=== PATIENT | female | born 1975 | race Caucasian/White ===

== ENCOUNTER 2017-06-06 15:08 | Emergency (ER) | payer OTHER ==
[2017-06-06 15:39] LABS: Basophils # (Auto) 0.1 K/mm3 (0.0-0.1); Basophils % (Auto) 0.6 % (0.0-1.8); Eosinophils # (Auto) 1.8 K/mm3 (0.0-0.4); Hematocrit 45.1 % (30.3-42.9); Hemoglobin 15.3 gm/dl (10.1-14.3); Lymphocytes # (Auto) 3.5 K/mm3 (1.2-5.4); Lymphocytes % (Auto) 25.8 % (13.4-35.0); Mean Corpuscular HGB Conc 34 % (30-34); Mean Corpuscular Hemoglobin 30 pg (28-32); Mean Corpuscular Volume 89 fl (79-97); Monocytes # (Auto) 0.6 K/mm3 (0.0-0.8); Monocytes % (Auto) 4.7 % (0.0-7.3); Platelet Count 254 K/mm3 (140-440); Red Blood Count 5.05 M/mm3 (3.65-5.03); Red Cell Distribution Width 13.7 % (13.2-15.2)
[2017-06-06 15:58] LABS: Alanine Aminotransferase 26 units/L (7-56); BUN/Creatinine Ratio 13; Blood Urea Nitrogen 9 mg/dL (7-17); Calcium 9.1 mg/dL (8.4-10.2); Hemolysis Index 9
[2017-06-06 17:02] LABS: Bacteria,Urine 1+ /HPF (Negative); Bilirubin,Urine NEG (Negative); Blood,Urine NEG (Negative); Color,Urine Yellow (Yellow); Mucus,Urine FEW /HPF; Nitrite,Urine NEG (Negative); Protein,Urine <15 mg/dL mg/dL (Negative)
--- NOTE | 2017-06-06 19:10 | Emergency Department Report ---
Chief Complaint: Abdominal Pain Stated Complaint: ABDOMINAL PAIN - HPI History of Present Illness: 41-year-old female past medical history GERD, H pylori presents with complaint of lower abdominal pain. Patient states she started triple therapy for GERD this week through her primary care doctor. Also states and claims that she seen small worms in her stool. States she has slight diarrhea. Last menstrual period 05/12 - ROS Review of Systems: 2 days of lower abdominal pain - Exam Vital Signs: Vital Signs 06/06/17 15:16 Temperature 98.4 F Pulse Rate 67 Respiratory 16 Rate Blood Pressure 121/75 O2 Sat by Pulse 98 Oximetry Physical Exam: Positive suprapubic pain MSE screening note: Focused history and physical exam performed. Due to findings the following was ordered: Screening Assessment/Plan/Differential Dx: Abdominal pain, 1- This initial assessment/diagnostic orders/clinical plan/ treatment(s) is/are subject to change based on pt's health status, clinical progression and re- assessment by fellow clinical providers in the ED. Further treatment and workup at subsequent clinical provers discretion. Patient/guardians urged not to elope from ED as their condition may be serious if not clinically assessed and managed. 2-ultrasound, type and screen, urinalysis 3-I provided patient with sample cup for stool ED Medical Decision Making - Lab Data Result diagrams: 06/06/17 15:25 06/06/17 15:25 ED Disposition for MSE Condition: Stable Instructions: Abdominal Pain (ED) Referrals: PRIMARY CARE, [Primary Care Provider] - 3-5 Days
--- NOTE | 2017-06-06 20:43 | Ultrasound Report ---
FINAL REPORT PROCEDURE: US OB < = 14 WEEKS FETUS TECHNIQUE: Real-time transabdominal sonography of the uterus, placenta, amniotic fluid, adnexa, and fetus was performed with image documentation. Measurements were obtained to determine age/size. M-mode Doppler was used to document heartbeat. CPT 52496 HISTORY: abdominal pain COMPARISON: No prior studies are available for comparison. FINDINGS: The uterus measures 9.2 x 5.6 x 6 centimeters. There are 2 nonspecific fluid collections in the endometrial cavity measuring 9.4 x 2.7 x 16.3 millimeters and 2 x 3.9 x 4.1 millimeters. There is no normal appearing intrauterine gestational sac. There is no pole, yolk sac or cardiac activity. Followup beta HCG measurements suggested. Right ovary measures 2.9 x 2.3 x 2.8 centimeters. Left ovary measures 2.4 x 2 x 1.6 centimeters. There are 3 cystic follicles measuring up to 7 millimeters in diameter. There is minimal nonspecific fluid in the pelvic cul-de-sac. IMPRESSION: There are 2 nonspecific fluid collections in the endometrial cavity measuring 9.4 x 2.7 x 16.3 millimeters and 2 x 3.9 x 4.1 millimeters. There is no normal appearing intrauterine gestational sac. There is no pole, yolk sac or cardiac activity. Followup beta HCG measurements suggested. Ovaries are normal in size and configuration. There are 3 cystic follicles in the left ovary measuring up to 7 millimeters in diameter. There is minimal nonspecific fluid in the pelvic cul-de-sac.
--- NOTE | 2017-06-06 21:15 | Ultrasound Report ---
FINAL REPORT EXAM: US OB TRANSVAGINAL HISTORY: abdominal pain TECHNIQUE: Ultrasound obstetrical transvaginal PRIORS: None. FINDINGS: Uterus is 9.2 x 5.2 x 6.0 centimeters. There are 2 tiny cystic foci seen within and uterus nonspecific could reflect early gestational sac. No pole or yolk sac identified. No focal myometrial abnormalities are identified. There is free fluid at the right adnexa and within the cul-de-sac. Right ovary is 2.9 x 2.3 x 2.8 centimeters Left ovary is 2.4 x 2.0 x 1.6 centimeters. Follicular cysts are noted in the left ovary No abnormal adnexal mass identified IMPRESSION: No definitive intrauterine gestation identified. Few tiny cystic structures noted within the endometrium nonspecific finding. May reflect very early gestation and continued followup recommended Small amount of free fluid noted in the cul-de-sac and at the right adnexa
--- NOTE | 2017-06-06 23:06 | Emergency Department Report ---
ED Abdominal Pain HPI - General Chief Complaint: Abdominal Pain Stated Complaint: ABDOMINAL PAIN Time Seen by Provider: 06/06/17 22:56 Source: family Mode of arrival: Ambulatory Limitations: Language Barrier - History of Present Illness Initial Comments: 41-year-old female past medical history GERD presents with complaint of slight epigastric abdominal pain intermittently for weeks. Patient states she gets burning sensation before and/or after eating. States she is being treated with triple therapy for H. pylori. Patient states she had epigastric pain despite taking triple therapy last 2 days which is why she came here. Denies fever chills chest pain palpitations nausea vomiting. Patient is awake alert and oriented 3. States she has some suprapubic discomfort. Denies vaginal bleeding. Last menstrual period 05/12. MD Complaint: abdominal pain Onset/Timin -: days(s) Location: epigastric, suprapubic Radiation: suprapubic Severity: mild Severity scale (0 -10): 0 Consistency: intermittent Improves With: eating Worsens With: eating Associated Symptoms: denies other symptoms - Related Data Previous Rx's Medication Instructions Recorded Last Taken Type 21/Iron Fu/Folic Acid 1 each PO QDAY #30 tablet 06/06/17 Unknown Rx [ Complete Caplet] Allergies Allergy/AdvReac Type Severity Reaction Status Date / Time No Known Allergies Allergy Unverified 06/06/17 15:16 ED Review of Systems ROS: Stated complaint: ABDOMINAL PAIN Other details as noted in HPI Constitutional: denies: chills, fever Eyes: denies: eye pain, eye discharge, vision change ENT: denies: ear pain, throat pain Respiratory: denies: cough, shortness of breath, wheezing Cardiovascular: denies: chest pain, palpitations Endocrine: no symptoms reported Gastrointestinal: denies: abdominal pain, nausea, diarrhea Genitourinary: denies: urgency, dysuria, discharge Musculoskeletal: denies: back pain, joint swelling, arthralgia Skin: denies: rash, lesions Neurological: denies: headache, weakness, paresthesias Psychiatric: denies: anxiety, depression Hematological/Lymphatic: denies: easy bleeding, easy bruising ED Past Medical Hx - Past Medical History Previous Medical History?: No - Surgical History Past Surgical History?: No - Social History Smoking Status: Never Smoker Substance Use Type: Alcohol - Medications Home Medications: Home Medications Medication Instructions Recorded Confirmed Last Taken Type 21/Iron Fu/Folic Acid 1 each PO QDAY #30 tablet 06/06/17 Unknown Rx [ Complete Caplet] ED Physical Exam - General Limitations: Language Barrier General appearance: alert, in no apparent distress - Head Head exam: Present: atraumatic, normocephalic - Eye Eye exam: Present: normal appearance, PERRL, EOMI - ENT ENT exam: Present: mucous membranes moist - Neck Neck exam: Present: normal inspection - Respiratory Respiratory exam: Present: normal lung sounds bilaterally. Absent: respiratory distress - Cardiovascular Cardiovascular Exam: Present: regular rate, normal rhythm. Absent: systolic murmur, diastolic murmur, rubs, gallop - GI/Abdominal GI/Abdominal exam: Present: soft (abdomen soft nontender nondistended), normal bowel sounds - Extremities Exam Extremities exam: Present: normal inspection - Back Exam Back exam: Present: normal inspection - Neurological Exam Neurological exam: Present: alert, oriented X3, CN II-XII intact, normal gait - Psychiatric Psychiatric exam: Present: normal affect, normal mood - Skin Skin exam: Present: warm, dry, intact, normal color. Absent: rash ED Course Vital Signs 06/06/17 06/06/17 06/06/17 15:16 21:39 23:46 Temperature 98.4 F 98.2 F 98.1 F Pulse Rate 67 68 61 Respiratory 16 18 18 Rate Blood Pressure 121/75 115/80 Blood Pressure 118/84 [Right] O2 Sat by Pulse 98 97 96 Oximetry ED Medical Decision Making - Lab Data Result diagrams: 06/06/17 15:25 06/06/17 15:25 - Medical Decision Making A/P: , possible pinworm infection 1-case discussed with Dr. Lyon 2-I informed patient that she is . Ultrasound shows no IUP at this time , hCG level 75. I discussed this with Dr. Lyon, patient to follow up with OB/ PELLET MACHINE OPERATOR. I advised patient to follow up within 1-2 weeks. I started patient on vitamins. 3-I informed patient that she should continue her triple therapy for H. pylori and take antacids as prescribed by her primary care doctor 4-I discussed potential treatment for pinworm with Dr. Lyon as patient claims she saw tiny worms in her feces. Because patient is will refrain from giving an C Helmetic Rx at this time as they are not recommended during . I advised patient to follow up with EMBEDDED SYSTEMS DEVELOPER to help her make a decision on how to approach treatment for this condition as it is a nonemergent condition Critical care attestation.: If time is entered above; I have spent that time in minutes in the direct care of this critically ill patient, excluding procedure time. ED Disposition Clinical Impression: Pinworm infection Qualifiers: Weeks of gestation: less than 8 weeks Qualified Code(s): Z3A.01 - Less than 8 weeks gestation of Disposition: DC-01 TO HOME OR SELFCARE Is pt being admited?: No Does the pt Need Aspirin: No Condition: Stable Instructions: (ED), Enterobiasis (ED), Abdominal Pain (ED) Prescriptions: 21/Iron Fu/Folic Acid [ Complete Caplet] 1 each PO QDAY #30 tablet Referrals: [facility] [Provider Group] - 3-5 Days [facility] [Provider Group] - 3-5 Days Forms: Accompanied Note, Work/School Release Form(ED) Time of Disposition: 23:28
[2017-06-06] MEDS ORDERED: PEPCID PO ONE (23:35)
[2017-06-06 23:47] VITALS: BP 118/84
== END 2017-06-06 23:51 | disposition home or self-care (01) ==
LOC: ED 15:08
DX: O98.811 Other maternal infectious and parasitic diseases complicating pregnancy, first trimester (principal); B80 Enterobiasis; O99.611 Diseases of the digestive system complicating pregnancy, first trimester; K21.9 Gastro-esophageal reflux disease without esophagitis; Z3A.01 Less than 8 weeks gestation of pregnancy
CPT/HCPCS: 36415; 76801; 76817; 80053; 81001; 82150; 83690; 84702; 84703; 85025; 86850; 86900; 86901; 87076; 87086; 87186; 99284

== ENCOUNTER 2017-08-05 10:04 | Emergency (ER) | payer SELFPAY ==
[2017-08-05 10:39] VITALS: BP 91/72
[2017-08-05] MEDS ORDERED: TYLENOL PO ONE (11:44)
--- NOTE | 2017-08-05 12:32 | Emergency Department Report ---
ED Lower Extremity HPI - General Chief Complaint: Extremity Injury, Lower Stated Complaint: LEFT LEG PAIN Time Seen by Provider: 08/05/17 11:11 Source: patient Mode of arrival: Ambulatory Limitations: Language Barrier - History of Present Illness Initial Comments: This is a 41-year-old female nontoxic, well nourished in appearance, no acute signs of distress presents to the ED with c/o of left lower leg pain and groin pain x2 days. Patient stated she is currtently 12 weeks and was seen by her READING EFFICIENCY COURSE DIRECTOR Dr. Templeton and Suzanne Abdi CNM with normal ultrasound but was brought her for a venous doppler to rule out DVT. Patient denies any calf pain or tenderness. Patient stated pain radiates from low region of left side to left lower extremity. Patient stated also had abnormal urine and was prescribed Keflex today to start. Patient denies any recent travels, long car rides, recently this days. Patient denies any chest pain, short of breath, fever, chills, nausea, vomiting, headache or stiff neck. Patient states she had several episodes prior to but was radiating towards her right lower extremity. Patient denies any allergies or significant past medical history. Viki sewing pattern layout technician used during interview and exam. MD Complaint: leg injury, other (groin) -: days(s) (2) Injury: Leg: Left Severity: mild Severity scale (0 -10): 8 Improves With: immobilization Worsens With: movement, palpation Associated Symptoms: ambulatory. denies: snap/pop sensation, swelling, numbness , tingling, unable to bear weight, able to partially bear weight - Related Data Previous Rx's Medication Instructions Recorded Last Taken Type 21/Iron Fu/Folic Acid 1 each PO QDAY #30 tablet 06/06/17 Unknown Rx [ Complete Caplet] RX: Acetaminophen [8Hr Arthritis 650 mg PO Q8H PRN #30 tablet.er 08/05/17 Unknown Rx Pain] Allergies Allergy/AdvReac Type Severity Reaction Status Date / Time No Known Allergies Allergy Unverified 06/06/17 15:16 ED Review of Systems ROS: Stated complaint: LEFT LEG PAIN Other details as noted in HPI Constitutional: denies: chills, fever Eyes: denies: eye pain, eye discharge, vision change ENT: denies: ear pain, throat pain Respiratory: denies: cough, shortness of breath, wheezing Cardiovascular: denies: chest pain, palpitations Endocrine: no symptoms reported Gastrointestinal: denies: abdominal pain, nausea, diarrhea Genitourinary: denies: urgency, dysuria, discharge Musculoskeletal: back pain, arthralgia. denies: joint swelling Skin: denies: rash, lesions Neurological: denies: headache, weakness, paresthesias Psychiatric: denies: anxiety, depression Hematological/Lymphatic: denies: easy bleeding, easy bruising ED Past Medical Hx - Past Medical History Previous Medical History?: No - Surgical History Past Surgical History?: No - Social History Smoking Status: Never Smoker Substance Use Type: None - Medications Home Medications: Home Medications Medication Instructions Recorded Confirmed Last Taken Type 21/Iron Fu/Folic Acid 1 each PO QDAY #30 tablet 06/06/17 Unknown Rx [ Complete Caplet] RX: Acetaminophen [8Hr Arthritis 650 mg PO Q8H PRN #30 tablet.er 08/05/17 Unknown Rx Pain] ED Physical Exam - General Limitations: Language Barrier General appearance: alert, in no apparent distress - Head Head exam: Present: atraumatic, normocephalic - Eye Eye exam: Present: normal appearance Pupils: Present: normal accommodation - ENT ENT exam: Present: normal exam, normal orophraynx, mucous membranes moist, TM's normal bilaterally, normal external ear exam - Neck Neck exam: Present: normal inspection, full ROM. Absent: tenderness, meningismus, lymphadenopathy, thyromegaly - Respiratory Respiratory exam: Present: normal lung sounds bilaterally. Absent: respiratory distress, wheezes, rales, rhonchi, stridor, chest wall tenderness, accessory muscle use, decreased breath sounds, prolonged expiratory - Cardiovascular Cardiovascular Exam: Present: regular rate, normal rhythm, normal heart sounds. Absent: bradycardia, tachycardia, irregular rhythm, systolic murmur, diastolic murmur, rubs, gallop - GI/Abdominal GI/Abdominal exam: Present: soft, normal bowel sounds. Absent: distended, tenderness, guarding, rebound, rigid, diminished bowel sounds - Rectal Rectal exam: Present: deferred - Extremities Exam Extremities exam: Present: normal inspection, full ROM, tenderness (posterior thigh and left groin), normal capillary refill. Absent: pedal edema, joint swelling, calf tenderness - Expanded Lower Extremity Exam Left Hip exam: Present: normal inspection, full ROM, external rotation, internal rotation, pelvic stability. Absent: tenderness, swelling, abrasion, laceration , ecchymosis, deformity, crepidus, dislocation, erythema, shortening Upper Leg exam: Present: normal inspection, full ROM, tenderness (left groin and posterior thigh). Absent: swelling, abrasion, laceration, ecchymosis, deformity, crepidus, dislocation, erythema Knee exam: Present: normal inspection, full ROM, full knee extension. Absent: tenderness, swelling, abrasion, laceration, ecchymosis, deformity, crepidus, dislocation, erythema, effusion, pain w/ pronation/supination, posterior draw sign, pain/laxity with valgus, pain/laxity with varus Lower Leg exam: Present: normal inspection, full ROM. Absent: tenderness, swelling, abrasion, laceration, ecchymosis, deformity, crepidus, dislocation, erythema, palpable cord, Raad's sign Ankle exam: Present: normal inspection, full ROM. Absent: tenderness, swelling , abrasion, laceration, ecchymosis, deformity, crepidus, dislocation, erythema, anterior draw sign Foot/Toe exam: Present: normal inspection, full ROM. Absent: tenderness, swelling, abrasion, laceration, ecchymosis, deformity, crepidus, dislocation, erythema, amputation, puncture wound, foreign body, calcaneal tenderness, tenderness at base of 5th metatarsal, nail avulsion, subungual hematoma Neuro vascular tendon exam: Present: no vascular compromise. Absent: pulse deficit, abnormal cap refill, motor deficit, sensory deficit, extremity cold to touch, pallor, abnormal 2-point discrimination, decreased fine/light touch, foot drop, peroneal nerve deficit, significant pain with passive ROM of distal joint Gait: Positive: observed and normal 1 - tenderness 2 - tenderness 3 - tenderness - Back Exam Back exam: Present: normal inspection, full ROM, paraspinal tenderness (left lumbar region), rash noted. Absent: tenderness, CVA tenderness (R), CVA tenderness (L), muscle spasm, vertebral tenderness - Expanded Back Exam Expanded Back exam: Absent: saddle anesthesia Back exam: Negative Straight Leg Raising: Left, Right - Neurological Exam Neurological exam: Present: alert, oriented X3, CN II-XII intact, normal gait, reflexes normal - Psychiatric Psychiatric exam: Present: normal affect, normal mood - Skin Skin exam: Present: warm, dry, intact, normal color. Absent: rash ED Course Vital Signs 08/05/17 10:34 Temperature 97.9 F Pulse Rate 73 Respiratory 16 Rate Blood Pressure 91/72 O2 Sat by Pulse 100 Oximetry - Reevaluation(s) Reevaluation #1: 08/05/17 12:35 Patient is speaking in full sentences with no signs of distress noted. - Consultations Consultation #1: 08/05/17 12:36 Suzanne Abdi CNM was consulted on [phone] and stated she wants to rule out DVT otherwise has normal and US done today within normal limits. Also stated UA abnormal and started patient on Keflex. ED Lower Extremity MDM - Medical Decision Making This is a 41-year-old female that presents with left lumbar spine pain versus sciatica. Patient stable was examined by me. Doppler of left lower extremity obtained with no obvious signs of DVT/SVT. There is no signs of DVT upon examination, no calf pain or calf tenderness. No cellulitis or abscess. Dr. Short and Suzanne her READING EFFICIENCY COURSE DIRECTOR was notified. The patient received Tylenol in the ED was picked if symptoms is improving and subsided. I will discharge patient with Tylenol. Patient is currently taking Keflex that she was diagnosed today by her READING EFFICIENCY COURSE DIRECTOR for a UTI. As per Barbara MIRANDA patient had a normal ultrasound. At time of discharge, the patient does not seem toxic or ill in appearance. No acute signs of distress noted. Patient agrees to discharge treatment plan of care. No further questions noted by the patient. Critical care attestation.: If time is entered above; I have spent that time in minutes in the direct care of this critically ill patient, excluding procedure time. ED Disposition Clinical Impression: Low back strain Qualifiers: Encounter type: initial encounter Qualified Code(s): S39.012A - Strain of muscle, fascia and tendon of lower back, initial encounter Sciatica Qualifiers: Laterality: left Qualified Code(s): M54.32 - Sciatica, left side Disposition: DC-01 TO HOME OR SELFCARE Is pt being admited?: No Does the pt Need Aspirin: No Condition: Stable Instructions: Sciatica (ED), Low Back Strain (ED) Additional Instructions: Follow-up with a primary care/OB-CORROSION CONTROL SPECIALIST doctor in 3-5 days or if symptoms worsen and continue return to emergency room as soon as possible. Prescriptions: RX: Acetaminophen [8Hr Arthritis Pain] 650 mg PO Q8H PRN #30 tablet.er PRN Reason: Pain Referrals: PRIMARY CARE, [Primary Care Provider] - 3-5 Days JAYNE VELA MD [Staff Physician] - 3-[address] [facility] [Outside] - 3-5 Days [facility] [Outside] - 3-5 Days Forms: Work/School Release Form(ED)
[2017-08-05 13:11] LABS: Bacteria,Urine 2+ /HPF (Negative); Bilirubin,Urine NEG (Negative); Blood,Urine SM (Negative); Color,Urine Yellow (Yellow); Hyaline Casts,Urine 2 /LPF; Mucus,Urine FEW /HPF; Protein,Urine <15 mg/dL mg/dL (Negative); Urobilinogen,Urine < 2.0 mg/dL (<2.0)
--- NOTE | 2017-08-06 09:56 | Vascular Lab Report ---
Left Lower Extremity Venous Duplex Study: Reason for Exam: Pain of the left lower extremity. Comments on the Right: A limited duplex study was done of the proximal veins of the right lower extremity. All veins visualized are freely compressible without evidence of internal echogenicity. Flow is spontaneous and phasic throughout. No evidence of acute or chronic thrombus is seen in any of the vessels visualized. Comments on the Left: All veins visualized are freely compressible without evidence of internal echogenicity. Flow is spontaneous and phasic throughout. No evidence of acute or chronic thrombus is seen in any of the vessels visualized. Impression: No evidence of acute or chronic deep venous thrombosis in the left lower extremity.
== END 2017-08-05 13:42 | disposition home or self-care (01) ==
LOC: ED 10:04
DX: O26.891 Other specified pregnancy related conditions, first trimester (principal); M54.32 Sciatica, left side; S39.012A Strain of muscle, fascia and tendon of lower back, initial encounter; Z3A.12 12 weeks gestation of pregnancy; X58.XXXA Exposure to other specified factors, initial encounter; Y93.89 Activity, other specified; Y92.89 Other specified places as the place of occurrence of the external cause; Y99.8 Other external cause status
CPT/HCPCS: 81001; 99284

== ENCOUNTER 2018-01-20 13:57 | Outpatient (CLI) | payer SELFPAY ==
[2018-01-20 16:01] LABS: Hematocrit 31.8 % (30.3-42.9); Hemoglobin 10.6 gm/dl (10.1-14.3); Mean Corpuscular HGB Conc 33 % (30-34); Mean Corpuscular Hemoglobin 27 pg (28-32); Mean Corpuscular Volume 80 fl (79-97); Platelet Count 185 K/mm3 (140-440); Red Blood Count 3.96 M/mm3 (3.65-5.03); Red Cell Distribution Width 15.6 % (13.2-15.2)
[2018-01-20 16:18] LABS: Alanine Aminotransferase 6 units/L (7-56); Albumin 3.4 g/dL (3.9-5); BUN/Creatinine Ratio 20; Blood Urea Nitrogen 10 mg/dL (7-17); Calcium 9.2 mg/dL (8.4-10.2); Hemolysis Index 18; Uric Acid 5.6 mg/dL (3.5-7.6)
--- NOTE | 2018-01-20 20:00 | Ultrasound Report ---
FINAL REPORT EXAM: US OB BPP WO NON-STRESS HISTORY: HTN TECHNIQUE: Biophysical profile obstetrical ultrasound PRIORS: None. FINDINGS: LMP 05/10/2017 clinical Age: 36 w 3 D LMP EDC 02/14/2018 Biophysical profile scoring 2 movement 2 tone 2 breathing 2 fluid 8/8 overall score Presentation: cephalic Activity: Monitored Placental location: Anterior toward the fundus Cardiac motion: 135 BPM using M-mode doppler Amniotic Fluid Volume: Adequate JOHAN 10.7 cm Cervical Length: 3.2 cm IMPRESSION: Single intrauterine viable with an approximate age of 36 weeks 3 days. Biophysical profile score is 8/8
[2018-01-20 20:36] LABS: Bilirubin,Urine NEG (Negative); Blood,Urine NEG (Negative); Color,Urine Yellow (Yellow); Mucus,Urine 3+ /HPF
--- NOTE | 2018-01-20 23:20 | Ultrasound Report ---
FINAL REPORT PROCEDURE: US OB VELOCIMETRY UMBILCAL ART TECHNIQUE: Real-time limited sonographic examination was performed for evaluation of size, position, heartbeat, fluid volume for each fetus with image documentation (1 or more fetuses). CPT 93458 HISTORY: HTN COMPARISON: No prior studies are available for comparison. FINDINGS: Umbilical artery SD ratio is 2.15 with normal waveforms. Resistive index is 0.55. IMPRESSION: Umbilical artery SD ratio is 2.15 with normal waveforms. Resistive index is 0.55.
--- NOTE | 2018-01-20 23:23 | Ultrasound Report ---
FINAL REPORT PROCEDURE: US OB LIMITED TECHNIQUE: Real-time limited sonographic examination was performed for evaluation of size, position, heartbeat, fluid volume for each fetus with image documentation (1 or more fetuses). CPT 06399 HISTORY: HTN COMPARISON: No prior studies are available for comparison. FINDINGS: Fetus is in a cephalic presentation. Amniotic fluid index is 10.7 centimeters. Placenta is anterior without previa. Heart rate is 137 beats per minute. Cervix measures 3.2 centimeters in length. IMPRESSION: Fetus is in a cephalic presentation. Amniotic fluid index is 10.7 centimeters. Placenta is anterior without previa. Heart rate is 137 beats per minute. Cervix measures 3.2 centimeters in length.
[2018-01-21 00:01] VITALS: BP 125/79
== END 2018-01-21 00:26 | disposition home or self-care (01) ==
LOC: TRG 13:57 → LD 13:59 → TRG 01-21 00:26
PROVIDERS: ATTEND Obstetrics & Gynecology
DX: O47.03 False labor before 37 completed weeks of gestation, third trimester (principal); Z3A.36 36 weeks gestation of pregnancy
CPT/HCPCS: 36415; 59025; 76815; 76819; 76820; 80053; 81001; 82565; 83615; 84450; 84460; 84550; 85027; 86850; 86900; 86901

== ENCOUNTER 2018-01-29 06:56 | Inpatient (IN) | payer OTHER ==
[2018-01-29] MEDS ORDERED: APRESOLINE IV PRN (07:50)
[2018-01-29] MEDS ORDERED: XYLOCAINE 2% INFILTRATI ONE (08:06)
[2018-01-29] MEDS ORDERED: BRETHINE SUB-Q PRN (08:06)
[2018-01-29] MEDS ORDERED: POLYCILLIN/NS 2 GM/100 ML 2 GM/100 ML BAG IV ONE (08:06)
[2018-01-29 08:22] LABS: Hematocrit 32.8 % (30.3-42.9); Hemoglobin 10.6 gm/dl (10.1-14.3); Mean Corpuscular HGB Conc 32 % (30-34); Mean Corpuscular Volume 80 fl (79-97); Platelet Count 152 K/mm3 (140-440); Red Cell Distribution Width 16.1 % (13.2-15.2)
[2018-01-29 08:25] LABS: Mean Corpuscular Hemoglobin 26 pg (28-32)
--- NOTE | 2018-01-29 08:32 | History and Physical Report ---
History of Present Illness Date of examination: 01/29/18 Date of admission: 01/29/18 08:05 Chief complaint: Labor History of present illness: 42 year old presents to L&D in labor. Patient states contractions started around midnight last night. Patient denies LOF or VB. Patient received care at [facility]. was complicated by advanced maternal age, grand multipara, and elevated blood pressure the last few weeks of (patient states she is not taking medications for). records are available as patient brought them with her. History of 6 term vaginal deliveries and 2 miscarriages. labs are as follows: B+, antibody screen negative, rubella immune, RPR nonreactive, hepatitis B surface antigen negative, HIV negative, chlamydia negative, gonorrhea negative, quad screen was declined by patient, sugar test WNL, GBS result unknown as no result is on chart. 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 denies: chlamydia, gonorrhea, hepatitis B, HIV , syphilis Family/Genetic History: diabetes Social history: , lives with family, full code. denies: smoking, alcohol abuse, prescription drug abuse, IV drug use - Obstetrical History Expected Date of Delivery: 02/14/18 Actual Gestation: 37 Week(s) 5 Day(s) : 9 Para: 6 Hx # Term Pregnancies: 7 Number of Pregnancies: 0 Spontaneous Abortions: 2 Induced : 0 Medications and Allergies Allergies Allergy/AdvReac Type Severity Reaction Status Date / Time No Known Allergies Allergy Verified 01/29/18 08:21 Home Medications Medication Instructions Recorded Confirmed Last Taken Type 21/Iron Fu/Folic Acid 1 each PO QDAY #30 tablet 06/06/17 01/20/18 Unknown Rx [ Complete Caplet] Acetaminophen [8Hr Arthritis Pain] 650 mg PO Q8H PRN #30 tablet.er 08/05/17 Unknown Rx Active Meds: Active Medications Ephedrine Sulfate (Ephedrine Sulfate) 10 mg IV Q2M PRN PRN Reason: Hypotension Hydralazine HCl (Apresoline) 5 mg IV Q30MIN PRN PRN Reason: Hypertension Ampicillin Sodium (Polycillin/Ns 2 Gm/100 Ml) 2 gm in 100 mls @ 100 mls/hr IV ONCE ONE; Protocol Stop: 01/29/18 09:05 Lactated Ringer's (Lactated Ringers) 1,000 mls @ 125 mls/hr IV DIRECT WILEY Oxytocin/Sodium Chloride (Pitocin/Ns 20 Unit/1000ml Drip) 20 units in 1,000 mls @ 125 mls/hr IV DIRECT WILEY Ampicillin Sodium (Ampicillin/Ns 1 Gm/50 Ml) 1 gm in 50 mls @ 100 mls/hr IV Q4HR WILEY; Protocol Lidocaine (Xylocaine 2%) 20 ml INFILTRATI ONCE ONE Stop: 01/29/18 08:07 Terbutaline Sulfate (Brethine) 0.25 mg SUB-Q ONCE PRN PRN Reason: Hyperstimulation/Hypertonicity Review of Systems All systems: negative (labor) - Vital Signs Vital signs: Vital Signs Pulse BP 100 H 163/99 01/29/18 07:30 01/29/18 07:30 Temp Pulse Resp BP Pulse Ox 107 H 164/86 98 01/29/18 07:48 01/29/18 07:31 01/29/18 07:48 - Physical Exam Cardiovascular: Regular rate, Normal S1, Normal S2 Lungs: Positive: Clear to auscultation Abdomen: Positive: normal appearance, soft. Negative: distention, tenderness, guarding, rigidity Genitourinary (Female): Positive: normal external genitalia, normal perenium. Negative: perineal/vulvar lesions Vagina: Positive: normal moisture Uterus: Positive: enlarged. Negative: nodular, tender Anus/Rectum: Positive: normal perianal skin Extremities: Positive: normal. Negative: tenderness, edema - Obstetrical FHR: category 2 Uterine Contraction Monitor Mode: External Cervical Dilatation: 3 Cervical Effacement Percentage: 100 station: -2 Uterine Contraction Pattern: Regular Uterine Contraction Intensity: Moderate Results Result Diagrams: 01/29/18 08:11 All other labs normal. Assessment and Plan A: at 37 weeks, 5 days gestation. Active labor. GBS unknown. Elevated blood pressure. P: Admit. GBS prophylaxis. Preeclamptic labs. Medication for BP. Anticipate vaginal delivery.
[2018-01-29] MEDS: LACTATED RINGERS 1,000 ML IV SCH (08:35)
[2018-01-29 08:43] LABS: Alanine Aminotransferase 9 units/L (7-56)
[2018-01-29 08:44] LABS: Bacteria,Urine 2+ /HPF (Negative); Bilirubin,Urine NEG (Negative); Blood,Urine MOD (Negative); Color,Urine Yellow (Yellow); Urobilinogen,Urine < 2.0 mg/dL (<2.0)
[2018-01-29 08:46] LABS: Uric Acid 5.3 mg/dL (3.5-7.6)
[2018-01-29] MEDS ORDERED: PITOCin/NS 20 UNIT/1000ML DRIP 20 UNITS/1,000 ML BAG IV SCH (09:00)
--- NOTE | 2018-01-29 10:26 | Ultrasound Report ---
FINAL REPORT EXAM: US OB BPP WO NON-STRESS HISTORY: BPP TECHNIQUE: Biophysical profile PRIORS: Biophysical profile January 20, 2018. FINDINGS: Single fetus is identified heart rate: 155 BPM JOHAN: 14.8 cm. Within normal limits. Breathin Gross Body Movements: 0 Tone: 2 Qualitative AFV: 2 IMPRESSION: Biophysical profile score 6/8. [place]remaine level II non-urgent reporting initiated.
[2018-01-29] MEDS ORDERED: SUBLIMAZE IV ONE (10:30)
[2018-01-29] MEDS ORDERED: SUBLIMAZE ONE (10:32)
--- NOTE | 2018-01-29 10:44 | Ultrasound Report ---
FINAL REPORT EXAM: US OB LIMITED HISTORY: JOHAN TECHNIQUE: Transabdominal OB ultrasound. PRIORS: Limited OB ultrasound January 20, 2018. FINDINGS: Single intrauterine . Presentation: Cephalic. heart rate: 149 BPM. Amniotic fluid index: 14.8 cm. Within normal limits. IMPRESSION: Single live intrauterine .
[2018-01-29] MEDS ORDERED: MAGNESIUM SULFATE 4GM/100ML 4 GM/100 ML BAG IV ONE (10:46)
--- NOTE | 2018-01-29 10:53 | Event Note ---
Date: 01/29/18 Urine protein 2+; labile BPs. Pt. has had Hydralazine. Will start PO Labetalol and will also start patient on Magnesium Sulfate. Patient has had pain medication. Attempted several times over past hour to consult with MD regarding this patient. Left messages for MD to call me back. Attempting to reach MD by a different route. Ordered stat US to check placenta. BPP is 4/8 and JOHAN is normal.
[2018-01-29] MEDS ORDERED: MAGNESIUM SULFATE 40GM/1000ML 40 GM/1,000 ML BAG IV SCH (11:00)
[2018-01-29] MEDS: NORMODYNE PO SCH ×2 (11:31→21:46)
[2018-01-29] MEDS: AMPICILLIN/NS 1 GM/50 ML 1 GM/50 ML BAG IV SCH ×2 (11:31→13:15)
--- NOTE | 2018-01-29 11:45 | Ultrasound Report ---
FINAL REPORT EXAM: US OB LIMITED HISTORY: Check placenta , estimated gestational age 37 weeks 6 days, patient TECHNIQUE: Ultrasound evaluation of the gravid uterus PRIORS: 01/20/2018 FINDINGS: There is a single viable intrauterine with documented cardiac activity. There is no Ultrasound evidence of abruption in the visible portion of the placenta. The maternal cervix and distal placenta are obscured by head. Heart rate: 152 beats per minute position: Cephalic Placental position: Anterior, grade 1 IMPRESSION: Single viable intrauterine without ultrasound evidence of abruption in the visible portion of placenta
[2018-01-29] MEDS ORDERED: CYTOTEC PR ONE (14:00)
[2018-01-29] MEDS ORDERED: CYTOTEC ONE (14:01)
--- NOTE | 2018-01-29 15:42 | Procedure Note ---
OB Delivery Note - Delivery Date of Delivery: 01/29/18 Surgeon: DERIC PARIS Estimated blood loss: 300cc - Vaginal Delivery presentation: vertex Delivery position: OA Intrapartum events: meconium, shoulder dystocia Delivery induction: none Delivery monitor: none Route of delivery: Delivery placenta: spontaneous Delivery cord: 3 umbilical vessels Episiotomy: none Anesthesia: none - Infant A at 1 minute: 8 at 5 minutes: 8 ( of liveborn male over intact perineum with apgars of 8 and 8. 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
--- NOTE | 2018-01-29 16:11 | Ultrasound Report ---
FINAL REPORT EXAM: US OB LIMITED HISTORY: Please check for retained placental lobe or piece, status post vaginal delivery today TECHNIQUE: Ultrasound evaluation of the pelvis using TRANSABDOMINAL technique PRIORS: Ob ultrasound earlier the same day prior to delivery FINDINGS: uterus is enlarged measuring 192.9 x 10.5 x 11.8 cm with interval delivery of fetus. No evidence of focal mass in the uterus and cervix. Heterogeneous ill-defined endometrium but without sonographic evidence of definite well-defined retained placental component. IMPRESSION: Enlarged uterus Endometrium is heterogeneous and ill-defined but without sonographic evidence of definite well-defined retained placental component
[2018-01-30] MEDS: NORCO 5/325 PO PRN ×3 (00:41→22:41)
[2018-01-30] MEDS: LACTATED RINGERS 1,000 ML IV SCH (00:54)
[2018-01-30] MEDS: NORMODYNE PO SCH ×2 (10:50→22:42)
[2018-01-30 11:08] LABS: Hematocrit 28.8 % (30.3-42.9); Hemoglobin 9.4 gm/dl (10.1-14.3)
--- NOTE | 2018-01-30 11:57 | Progress Note ---
Assessment and Plan A: day 1. Preeclampsia; BPs now stable. Anemia. P: Supplement with iron. Continue po Labetalol. Anticipate that patient will be discharged home tomorrow as long as all continues to go well. Subjective - Subjective Date of service: 01/30/18 Principal diagnosis: day 1 S/P spontaneous vaginal delivery Interval history: day 1 S/P spontaneous vaginal delivery. Patient is doing well. BPs are normal. Magnesium sulfate was stopped overnight ( pt. developed blurred vision). Patient states blurred vision has resolved. Patient is voiding without difficulty and ambulating well. She reports small amount of lochia. She is tolerating a regular diet without nausea or vomiting. Patient denies headache, visual disturbance, cough, chest pain, shortness of breath, nausea or vomiting, abdominal or epigastric pain, leg pain, or any other problems. Patient reports: appetite normal, voiding normally, pain well controlled, flatus , ambulating normally [place]: doing well Objective - Vital Signs Latest vital signs: Vital Signs Temp Pulse Resp BP BP Pulse Ox 01/30/18 10:50 82 121/70 01/30/18 06:19 98.2 F 81 18 111/75 96 01/30/18 05:20 18 01/30/18 04:10 98.0 F 78 18 134/82 94 01/30/18 02:15 98.4 F 76 18 138/83 98 01/30/18 00:41 18 01/30/18 00:00 98.0 F 83 18 130/85 97 01/29/18 21:46 85 150/88 01/29/18 20:15 98.6 F 92 H 18 134/86 01/29/18 18:50 86 18 129/83 01/29/18 16:50 98.9 F 86 18 153/95 98 01/29/18 16:15 83 138/80 01/29/18 13:55 98.3 F 88 20 122/90 01/29/18 13:44 88 122/90 Intake and Output 01/29/18 01/30/18 01/30/18 23:59 07:59 15:59 Intake Total 1000 480 Output Total 850 1600 Balance 150 -1120 Intake: IV 1000 Lactated Ringers 1,000 ml 1000 @ 125 mls/hr IV DIRECT WILEY Rx#:[id number] Oral 480 Output: Urine 850 1600 Indwelling Catheter 850 1600 Other: Total, Intake Amount 240 Total, Output Amount 850 400 - Exam Cardiovascular: Present: Regular rate, Normal S1, Normal S2, No murmurs Lungs: Present: Clear to auscultation Abdomen: Present: normal appearance, soft, normal bowel sounds. Absent: distention, tenderness, guarding, rigidity Uterus: Present: normal, firm, fundal height below umbilicus. Absent: bogginess , tenderness Extremities: Present: normal. Absent: tenderness, edema - Labs Labs: Abnormal lab results 01/29/18 01/29/18 01/30/18 Range/Units 16:16 23:02 10:05 Hgb 9.4 L (10.1-14.3) gm/dl Hct 28.8 L (30.3-42.9) % Magnesium 4.20 H 5.30 H (1.7-2.3) mg/dL
[2018-01-30] MEDS: FEOSOL PO SCH (22:42)
[2018-01-31] MEDS: NORCO 5/325 PO PRN (06:07)
--- NOTE | 2018-01-31 09:48 | Progress Note ---
Assessment and Plan - Patient Problems (1) Status post normal vaginal delivery Current Visit: Yes Status: Acute Plan to address problem: PPD 2 - stable Discharge to home today Follow-up at [facility] in 1 week for BP check (2) Anemia in puerperium, baby delivered during current episode of care Current Visit: Yes Status: Acute Plan to address problem: Asymptomatic Continue iron therapy with ferrous sulfate 325mg PO BID (3) Preeclampsia Current Visit: Yes Status: Acute Qualifiers: Trimester: third trimester Qualified Code(s): O14.93 - Unspecified pre- eclampsia, third trimester Plan to address problem: Completed magnesium sulfate therapy Last BP 104/67 - on Labetalol 200mg PO BID Continue antihypertensive therapy Subjective - Subjective Date of service: 01/31/18 Principal diagnosis: s/p , PPD #2 Patient reports: appetite normal, voiding normally, pain well controlled, ambulating normally, no dizzy ambulation [place]: doing well Objective - Vital Signs Latest vital signs: Vital Signs Temp Pulse Resp BP BP 01/31/18 00:00 98.7 F 71 16 104/67 01/30/18 17:45 98.4 F 75 18 134/85 01/30/18 10:50 82 121/70 Intake and Output 01/30/18 01/31/18 01/31/18 23:59 07:59 15:59 Intake Total 300 Balance 300 Intake: Intake, Free Water 300 Other: # Voids Indwelling Catheter 1 - Exam Abdomen: Present: normal appearance, soft Vulva: both: normal Uterus: Present: normal, firm, fundal height below umbilicus Extremities: Present: normal - Labs Labs: Abnormal lab results 01/30/18 01/30/18 Range/Units 10:05 13:44 Hgb 9.4 L (10.1-14.3) gm/dl Hct 28.8 L (30.3-42.9) % Magnesium 2.50 H (1.7-2.3) mg/dL
--- NOTE | 2018-01-31 09:56 | Discharge Summary ---
Providers - Providers Date of Admission: 01/29/18 08:05 Date of discharge: 01/31/18 Attending physician: YANN BARRETT Primary care physician: YANN BARRETT Hospitalization Reason for admission: active labor, IUP at term Delivery: Episiotomy: none Laceration: none Other procedures: none complications: none Discharge diagnosis: IUP at term delivered [place] baby: male Hospital course: Complicated by pre-eclampsia Condition at discharge: Stable Disposition: ME-01 TO HOME OR SELFCARE - Discharge Diagnoses (1) Status post normal vaginal delivery Status: Acute (2) Anemia in puerperium, baby delivered during current episode of care Status: Acute Comment: Asymptomatic Continue iron therapy (3) Preeclampsia Status: Acute Qualifiers: Trimester: third trimester Qualified Code(s): O14.93 - Unspecified pre- eclampsia, third trimester Comment: BPs stable Continue antihypertensive therapy Plan - Discharge Medications Prescriptions: Ferrous Sulfate [Feosol 325 MG tab] 325 mg PO BID #60 tablet Labetalol [Normodyne TAB] 200 mg PO BID #30 tablet - Provider Discharge Summary Additional instructions: [] Smoking cessation referral if applicable(refer to patient education folder for contact #) [] Refer to [facility]'s [facility] Booklet Call your doctor immediately for: * Fever > 100.5 * Heavy vaginal bleeding ( >1 pad per hour) * Severe persistent headache * Shortness of breath * Reddened, hot, painful area to leg or breast * Drainage or odor from incision. * Keep incision clean and dry at all times and follow doctor's instructions regarding bathing/showering - Follow up plan Follow up: YANN BARRETT MD [Primary Care Provider] - 7 Days (Follow-up at [facility] in 1 week for BP check)
[2018-01-31] MEDS: NORMODYNE PO SCH (10:00)
[2018-01-31] MEDS: FEOSOL PO SCH (12:30)
[2018-01-31 15:13] VITALS: BP 150/76
== END 2018-01-31 14:24 | disposition home or self-care (01) | DRG 775 ==
LOC: TRG 06:56 → LD 08:05 → OB 16:50
PROVIDERS: ADMIT Obstetrics & Gynecology Gynecology; ATTEND Obstetrics & Gynecology Gynecology
PROC: 10E0XZZ Delivery of Products of Conception, External Approach (ICD-10-PCS; principal; 2018-01-29)
DX: O77.0 Labor and delivery complicated by meconium in amniotic fluid (principal); O14.94 Unspecified pre-eclampsia, complicating childbirth; O66.0 Obstructed labor due to shoulder dystocia; Z3A.37 37 weeks gestation of pregnancy; Z37.0 Single live birth; Z88.3 Allergy status to other anti-infective agents; O90.81 Anemia of the puerperium; D64.9 Anemia, unspecified
CPT/HCPCS: 36415; 76815; 76819; 81001; 82565; 83615; 83735; 84450; 84460; 84550; 85014; 85018; 85027; 86592; 86850; 86900; 86901; 99211; G0463; J0290; J2590; J3010; J3475; J7120